=== PATIENT | male | born 1995 | race Hispanic/Latino ===

== ENCOUNTER 2022-02-28 16:26 | Emergency (ER) | payer SELFPAY ==
[2022-02-28] MEDS ORDERED: IBUPROFEN 200 MG TAB PO ONE (16:44)
[2022-02-28] MEDS ORDERED: IBUPROFEN 400 MG TAB ONE (16:45)
[2022-02-28] MEDS ORDERED: ONDANSETRON 4 MG (ODT) TAB ONE (16:45)
--- NOTE | 2022-02-28 17:09 | RAD REPORT ---
EXAM DESCRIPTION: Zeke Single View02/28/2022 5:01 pm CLINICAL HISTORY: Chest pain COMPARISON: none FINDINGS: The lungs appear clear of acute infiltrate. The heart is normal size IMPRESSION: No acute abnormalities displayed
--- NOTE | 2022-02-28 17:34 | EDPHYS ---
Physician Documentation [facility] Name: Shaun Jenkins Age: 26 yrs Sex: Male : 1995 Arrival Date: 02/28/2022 Time: 16:28 Bed 9 Private MD: ED Physician Jhonny Wylie HPI: 02/28 17:34 This 26 yrs old Male presents to ER via Ambulatory with complaints of ms3 Breathing Difficulty, Fever. 17:34 The patient has shortness of breath at rest. Onset: The symptoms/episode began/occurred ms3 yesterday. Duration: The symptoms are continuous. The patient's shortness of breath has no apparent modifying factors. Associated signs and symptoms: Pertinent positives: fever, nausea, vomiting. Severity of symptoms: At their worst the symptoms were severe in the emergency department the symptoms are unchanged. Patient states that he tested positive for COVID x2 at home.. Historical: - Allergies: 16:34 No Known Allergies; ll1 - PMHx: 16:34 None; ll1 - PSHx: 16:34 None; ll1 - Immunization history:: Client reports receiving the 2nd dose of the Covid vaccine, Flu vaccine status is unknown. - Social history:: Smoking status: Patient reports the use of cigarette tobacco products, denies chronic smoking, but will smoke occasionally, Reported history of juuling and/or vaping. ROS: 17:34 Cardiovascular: Negative for chest pain, and palpitations. ms3 17:34 Skin: Negative for injury, rash, and discoloration. 17:34 Constitutional: Positive for chills, fever. 17:34 ENT: Positive for sore throat. 17:34 Respiratory: Positive for shortness of breath. 17:34 Abdomen/GI: Positive for nausea, vomiting. 17:34 Skin: 17:34 All other systems are negative. Exam: 17:34 Constitutional: This is a well developed, well nourished patient who is awake, alert, ms3 and in no acute distress. Head/Face: Normocephalic, atraumatic. Eyes: Pupils equal round and reactive to light, extra-ocular motions intact. Lids and lashes normal. Conjunctiva and sclera are non-icteric and not injected. Periorbital areas with no swelling, redness, or edema. Chest/axilla: Normal chest wall appearance and motion. Nontender with no deformity. Cardiovascular: Regular rate and rhythm with a normal S1 and S2. No gallops, murmurs, or rubs. Normal PMI, no JVD. No pulse deficits. Respiratory: Lungs have equal breath sounds bilaterally, clear to auscultation and percussion. No rales, rhonchi or wheezes noted. No increased work of breathing, no retractions or nasal flaring. Abdomen/GI: Soft, non-tender, with normal bowel sounds. No distension or tympany. No guarding or rebound. No evidence of tenderness throughout. Skin: Warm, dry with normal turgor. Normal color with no rashes, no lesions, and no evidence of cellulitis. Psych: Awake, alert, with orientation to person, place and time. Behavior, mood, and affect are within normal limits. Vital Signs: 16:32 BP 127 / 66; Pulse 117; Resp 20; Temp 101.0; Pulse Ox 98% ; Weight 95.25 kg; Height 5 ll1 ft. 10 in. (177.80 cm); Pain 8/10; 17:31 BP 109 / 71; Pulse 100; Resp 20; Pulse Ox 98.5% on R/A; ll1 16:32 Body Mass Index 30.13 (95.25 kg, 177.80 cm) ll1 MDM: 16:41 Patient medically screened. ms3 17:34 Differential diagnosis: COVID vs Flu vs PNA. ms3 17:34 Data reviewed: vital signs, nurses notes, radiologic studies, and as a result, I will ms3 discharge patient. Data interpreted: Pulse oximetry: on room air is 98 %. Interpretation: normal. Counseling: I had a detailed discussion with the patient and/or guardian regarding: the historical points, exam findings, and any diagnostic results supporting the discharge/admit diagnosis, radiology results, the need for outpatient follow up, to return to the emergency department if symptoms worsen or persist or if there are any questions or concerns that arise at home. ED course: Discussed CXR , PE findings with patient. Patient to follow up with Dr Graham in 2-3 days. Patient understands/ agrees with plan. All questions answered. Return precautions given to include worsening symptoms, or any other concerns. Patient is improved, in NAD, non-toxic appearing, ambulatory in ED, speaking full sentences.. 02/28 16:42 Order name: CXR XRAY; Complete Time: 17:32 ms3 Administered Medications: 16:42 Drug: Zofran (Ondansetron) 4 mg Route: PO; ll1 16:43 Drug: Motrin (ibuprofen) 600 mg Route: PO; ll1 Disposition Summary: 02/28/22 17:34 Discharge Ordered Location: Home ms3 Condition: Stable ms3 Diagnosis - COVID ms3 - Myalgia ms3 - Cough ms3 Followup: ms3 - With: Andrea Graham DO - When: 2 - 3 days - Reason: Re-evaluation by your physician Discharge Instructions: - Discharge Summary Sheet ms3 - COVID-19 ms3 - COVID-19 Frequently Asked Questions ms3 - 10 Things You Can Do to Manage Your COVID-19 Symptoms at Home - [facility] ms3 Forms: - Medication Reconciliation Form ms3 - Thank You Letter ms3 - Antibiotic Education ms3 - Prescription Opioid Use ms3 Prescriptions: - Zofran 4 mg Oral Tablet - take 1 tablet by ORAL route every 8 hours As needed as needed for nausea/ ms3 vomiting; 20 tablet; Refills: 0, Product Selection Permitted Signatures: Dispatcher [employer] EDMS Wilbert Buck RN RN ll1 Jhonny Wylie DO DO ms3 Corrections: (The following items were deleted from the chart) 16:46 16:38 Influenza Screen (A \T\ B)+BA.LAB.BRZ ordered. EDMS EDMS 16:46 16:38 Group A Streptococcus Rapid Sc+BA.LAB.BRZ ordered. EDMS EDMS 16:46 16:39 Influenza Screen (A ordered. EDMS EDMS
--- NOTE | 2022-02-28 17:34 | ER ---
Nurse's Notes [facility] Name: Shaun Jenkins Age: 26 yrs Sex: Male : 1995 Arrival Date: 02/28/2022 Time: 16:28 Bed 9 Private MD: Diagnosis: COVID;Myalgia;Cough Presentation: 02/28 16:32 Chief complaint: Patient states: SOB, slight cough, fever, VEE for 2 days. + body aches. ll1 At home covid tests positive. Coronavirus screen: Vaccine status: Patient reports being unvaccinated. Client denies travel out of the [place] in the last 14 days. chills, congestion, cough unrelated to allergies, fatigue, fever, headache, muscle pain, nausea, vomiting. Client presents with at least one sign or symptom that may indicate coronavirus-19. Standard/surgical mask placed on the client. Ebola Screen: Patient denies travel to an Ebola-affected area in the 21 days before illness onset. Initial Sepsis Screen: Does the patient meet any 2 criteria? HR > 90 bpm. No. Patient's initial sepsis screen is negative. Does the patient have a suspected source of infection? Yes: Productive cough/pneumonia. Risk Assessment: Do you want to hurt yourself or someone else? Patient reports no desire to harm self or others. Onset of symptoms was February 27, 2022. 16:32 Method Of Arrival: Ambulatory ll1 16:32 Acuity: DALE 4 ll1 Triage Assessment: 16:35 General: Appears ill, Behavior is cooperative, appropriate for age. Pain: Complains of ll1 pain in head Quality of pain is described as aching. Neuro: Reports headache weakness. Respiratory: Reports shortness of breath cough that is. 17:35 Respiratory: Onset: The symptoms/episode began/occurred gradually, the patient has mild ld1 shortness of breath. Historical: - Allergies: 16:34 No Known Allergies; ll1 - PMHx: 16:34 None; ll1 - PSHx: 16:34 None; ll1 - Immunization history:: Client reports receiving the 2nd dose of the Covid vaccine, Flu vaccine status is unknown. - Social history:: Smoking status: Patient reports the use of cigarette tobacco products, denies chronic smoking, but will smoke occasionally, Reported history of juuling and/or vaping. Screenin:34 Abuse screen: Denies threats or abuse. Denies injuries from another. Nutritional ld1 screening: No deficits noted. Tuberculosis screening: No symptoms or risk factors identified. Fall Risk None identified. Assessment: 17:31 Reassessment: No changes from previously documented assessment. Patient and/or family ll1 updated on plan of care and expected duration. Pain level reassessed. Patient states symptoms have not improved. 17:34 Reassessment: Patient appears in no apparent distress at this time. No changes from ld1 previously documented assessment. General: Appears in no apparent distress. comfortable, Behavior is calm, cooperative, appropriate for age. Pain: Denies pain. Neuro: Level of Consciousness is awake, alert, obeys commands, Oriented to person, place, time, situation. Cardiovascular: Capillary refill < 3 seconds Patient's skin is warm and dry. Rhythm is sinus rhythm. Respiratory: Airway is patent Respiratory effort is even, unlabored. Respiratory: Breath sounds are clear bilaterally. GI: Abdomen is flat, non-distended. Vital Signs: 16:32 BP 127 / 66; Pulse 117; Resp 20; Temp 101.0; Pulse Ox 98% ; Weight 95.25 kg; Height 5 ll1 ft. 10 in. (177.80 cm); Pain 8/10; 17:31 BP 109 / 71; Pulse 100; Resp 20; Pulse Ox 98.5% on R/A; ll1 16:32 Body Mass Index 30.13 (95.25 kg, 177.80 cm) ll1 ED Course: 16:28 Patient arrived in ED. mr 16:34 Triage completed. ll1 16:34 Jhonny Wylie DO is Attending Physician. ms3 16:34 Arm band placed on. ll1 17:03 CXR XRAY In Process Unspecified. EDMS 17:26 Sandie Santoyo, JIMENA is Primary Nurse. ld1 17:33 Andrea Graham DO is Referral Physician. ms3 17:34 Patient has correct armband on for positive identification. Placed in gown. Bed in low ld1 position. Call light in reach. Side rails up X2. telemetry monitor on. Pulse ox on. NIBP on. Door closed. Noise minimized. Warm blanket given. 17:34 No provider procedures requiring assistance completed. Patient did not have IV access ld1 during this emergency room visit. Administered Medications: 16:42 Drug: Zofran (Ondansetron) 4 mg Route: PO; ll1 16:43 Drug: Motrin (ibuprofen) 600 mg Route: PO; ll1 Medication: 17:34 VIS not applicable for this client. ld1 Outcome: 17:34 Discharge ordered by . ms3 17:34 Discharged to home ambulatory, with family. ld1 17:34 Condition: stable 17:34 Discharge instructions given to patient, family, Instructed on discharge instructions, follow up and referral plans. Demonstrated understanding of instructions, follow-up care. 17:45 Patient left the ED. ld1 Signatures: Dispatcher [employer] EDMS CwoanChantelle navarrete mr Wilbert Buck RN RN ll1 Jhonny Wylie DO DO ms3 Sandie Santoyo, JIMENA RN ld1 Corrections: (The following items were deleted from the chart) 16:35 16:32 Chief complaint: Patient states: SOB, slight cough, fever, VEE for 2 days. + body ll1 aches ll1 16:48 16:32 Acuity: DALE 3 ll1 ll1
[2022-02-28 18:31] VITALS: TEMP 101; O2SAT 98
[2022-02-28 18:42] VITALS: BP 109/71
== END 2022-02-28 17:45 | disposition home or self-care (01) ==
LOC: ER 16:26
DX: U07.1 COVID-19 (principal); M79.10 Myalgia, unspecified site; Z72.0 Tobacco use
CPT/HCPCS: 71045; 99284

== ENCOUNTER 2024-01-09 03:49 | Emergency (ER) | payer SELFPAY ==
[2024-01-09] MEDS ORDERED: CEFTRIAXONE 1000 MG/VIAL ONE (04:25)
[2024-01-09] MEDS ORDERED: GUAIFENESIN/DM 5 ML UCUP ONE (04:26)
[2024-01-09] MEDS ORDERED: ACETAMINOPHEN 500 MG TAB ONE (04:26)
[2024-01-09] MEDS ORDERED: KETOROLAC 30 MG/ML INJ ONE (04:26)
[2024-01-09] MEDS ORDERED: LIDOCAINE 1% MPF 2 ML AMPULE ONE (04:26)
--- NOTE | 2024-01-09 04:36 | ER ---
Nurse's Notes [facility] Name: Shaun Jenkins Age: 28 yrs Sex: Male : 1995 Arrival Date: 01/09/2024 Time: 03:49 Bed 13 Private MD: Diagnosis: Acute suppurative otitis media without spontaneous rupture of ear drum, recurrent, left ear;Acute bronchitis, unspecified Presentation: 01/08 04:08 Chief complaint: Patient states: cough and congestion,onset 4 days ago. with left ear pf1 pain of 6,onset yesterday. 04:08 Coronavirus screen: Vaccine status: Patient reports receiving the 1st dose of the Covid pf1 vaccine. Client denies travel out of the [place] in the last 14 days. Client presents with at least one sign or symptom that may indicate coronavirus-19. Ebola Screen: Patient negative for fever greater than or equal to 101.5 degrees Fahrenheit, and additional compatible Ebola Virus Disease symptoms. Initial Sepsis Screen: Does the patient meet any 2 criteria? No. Patient's initial sepsis screen is negative. Does the patient have a suspected source of infection? No. Patient's initial sepsis screen is negative. Risk Assessment: Do you want to hurt yourself or someone else? Patient reports no desire to harm self or others. Onset of symptoms was January 05, 2024. Care prior to arrival: Medication(s) given: Tylenol, 500mg at 2300 tonight. 04:08 Method Of Arrival: Ambulatory pf1 04:08 Acuity: DALE 4 pf1 Triage Assessment: 04:17 General: Appears in no apparent distress. comfortable, well groomed, well developed, pf1 Behavior is calm, cooperative, appropriate for age, quiet. Pain: Complains of pain in left ear Pain currently is 6 out of 10 on a pain scale. Pain began 1 day ago. EENT: Reports nasal congestion pain in left ear. Neuro: No deficits noted. Level of Consciousness is awake, alert, obeys commands, Oriented to person, place, time, situation. Cardiovascular: No deficits noted. Capillary refill < 3 seconds Patient's skin is warm and dry. Respiratory: Reports cough that is Airway is patent Respiratory effort is even, unlabored, Respiratory pattern is regular, symmetrical. GI: No deficits noted. No signs and/or symptoms were reported involving the gastrointestinal system. : No deficits noted. No signs and/or symptoms were reported regarding the genitourinary system. Derm: No deficits noted. No signs and/or symptoms reported regarding the dermatologic system. Musculoskeletal: No deficits noted. No signs and/or symptoms reported regarding the musculoskeletal system. Historical: - Allergies: 04:17 No Known Allergies; pf1 - PMHx: 04:17 None; pf1 - PSHx: 04:17 None; pf1 - Immunization history:: Adult Immunizations up to date, Client reports receiving the Garland \T\ Garland single-dose vaccine. Last tetanus immunization: > 10 years ago Flu vaccine is not up to date. - Infectious Disease History:: Denies. - Social history:: Smoking status: Reported history of juuling and/or vaping. Patient/guardian denies using alcohol, street drugs. - Family history:: not pertinent. Screenin:18 [facility] ED Fall Risk Assessment (Adult) History of falling in the last 3 months, pf1 including since admission No falls in past 3 months (0 pts) Confusion or Disorientation No (0 pts) Intoxicated or Sedated No (0 pts) Impaired Gait No (0 pts) Mobility Assist Device Used No (0 pt) Altered Elimination No (0 pt) Score/Fall Risk Level 0 - 2 = Low Risk Oriented to surroundings, Maintained a safe environment, Educated pt \T\ family on fall prevention, incl call for assistance when getting out of bed, Assessed \T\ reinforced patient's understanding of fall precautions, Provided non-skid footwear, Hourly rounding (assess needs \T\ fall precautionary measures) done, Used ambulatory aids as needed (educated on \T\ assisted with), Used gait belt as appropriate. Abuse screen: Denies threats or abuse. Nutritional screening: No deficits noted. Tuberculosis screening: No symptoms or risk factors identified. Assessment: 04:19 Reassessment: see triage assessment. General:. pf1 04:30 General: Appears in no apparent distress. comfortable, Behavior is calm, cooperative. jw7 04:30 Pain: Complains of pain in left ear Pain does not radiate. Pain currently is 6 out of jw7 10 on a pain scale. Quality of pain is described as stinging, Pain began 1 day ago. Is continuous. Neuro: Level of Consciousness is awake, alert, obeys commands, Oriented to person, place, time, situation. Cardiovascular: Heart tones S1 S2 present Capillary refill < 3 seconds Clubbing of nail beds is absent JVD is absent Patient's skin is warm and dry. Respiratory: Airway is patent Trachea midline Respiratory effort is even, unlabored, Respiratory pattern is regular, symmetrical, Breath sounds are clear bilaterally. GI: Abdomen is flat, non-distended, Bowel sounds present X 4 quads. Abd is soft and non tender X 4 quads. : No deficits noted. No signs and/or symptoms were reported regarding the genitourinary system. EENT: Reports nasal congestion nasal discharge pain in left ear. Derm: Skin is intact, is healthy with good turgor, Skin is dry, Skin is normal, Skin temperature is warm. Musculoskeletal: Circulation, motion, and sensation intact. Range of motion: intact in all extremities. 05:00 Reassessment: Patient appears in no apparent distress at this time. Patient and/or jw7 family updated on plan of care and expected duration. Pain level reassessed. Patient is alert, oriented x 3, equal unlabored respirations, skin warm/dry/pink. Patient states feeling better. Patient states symptoms have improved. Vital Signs: 04:08 BP 130 / 81; Pulse 79; Resp 16; Temp 98; Pulse Ox 100% on R/A; Weight 83.91 kg; Height pf1 5 ft. 9 in. ; Pain 6/10; 04:45 BP 122 / 83; Pulse 67; Resp 16 S; Pulse Ox 100% on R/A; jw7 04:08 Body Mass Index 27.32 (83.91 kg, 175.26 cm) pf1 04:08 Pain Scale: Adult pf1 ED Course: 03:56 Patient arrived in ED. gm2 04:17 Triage completed. pf1 04:18 Arm band placed on right wrist. pf1 04:19 Jim Erwin MD is Attending Physician. sp4 04:19 No provider procedures requiring assistance completed. Patient did not have IV access pf1 during this emergency room visit. 04:34 Hilda Coburn RN is Primary Nurse. jw7 04:35 Patient has correct armband on for positive identification. Bed in low position. Call jw7 light in reach. Provided Education on: Use of Call Light. Administered Medications: 04:30 Drug: Acetaminophen PO 1000 mg PO once Route: PO; pf1 04:52 Follow up: Response: No adverse reaction; Marked relief of symptoms; Pain is decreased pf1 04:30 Drug: Dextromethorphan-Guaifenesin PO Liquid 10 mg-100 mg/5 mL 10 ml PO once Route: PO; pf1 04:52 Follow up: Response: No adverse reaction; Marked relief of symptoms pf1 05:00 Follow up: Response: No adverse reaction; Marked relief of symptoms jw7 04:32 Drug: Ketorolac IM 60 mg IM once Route: IM; Site: left ventrogluteal; pf1 04:52 Follow up: Response: No adverse reaction; Marked relief of symptoms; Pain is decreased pf1 04:35 Drug: Rocephin (cefTRIAXone) IM 1 grams IM once Route: IM; Site: right ventrogluteal; pf1 04:52 Follow up: Response: No adverse reaction pf1 Medication: 05:00 VIS not applicable for this client. jw7 Outcome: 04:36 Discharge ordered by . celsa 05:00 Discharged to home ambulatory, [facility] 05:00 Condition: stable 05:00 Discharge instructions given to patient, Instructed on discharge instructions, follow up and referral plans. medication usage, Demonstrated understanding of instructions, follow-up care, medications, Prescriptions given X 3, 05:00 Patient left the ED. jw7 Signatures: Hilda Coburn RN RN jw7 Savanna Flores RN RN pf1 Jim Erwin MD MD sp4 Jena Hayes gm2 Corrections: (The following items were deleted from the chart) 05:50 05:49 Patient left the ED. jw7 jw7
--- NOTE | 2024-01-09 04:36 | EDPHYS ---
Physician Documentation [facility] Name: Shaun Jenkins Age: 28 yrs Sex: Male : 1995 Arrival Date: 01/09/2024 Time: 03:49 Bed 13 Private MD: ED Physician Jim Erwin HPI: 01/08 04:20 This 28 yrs old Male presents to ER via Ambulatory with complaints of Ear sp4 Pain, Cough, Congestion. 04:20 28 year old ,male presents with acute onset left ear pain starting this morning. . sp4 Historical: - Allergies: 04:17 No Known Allergies; pf1 - PMHx: 04:17 None; pf1 - PSHx: 04:17 None; pf1 - Immunization history:: Adult Immunizations up to date, Client reports receiving the [place]land \T\ Garland single-dose vaccine. Last tetanus immunization: > 10 years ago Flu vaccine is not up to date. - Infectious Disease History:: Denies. - Social history:: Smoking status: Reported history of juuling and/or vaping. Patient/guardian denies using alcohol, street drugs. - Family history:: not pertinent. ROS: 04:20 Constitutional: Negative for fever, chills, and weight loss, Positive Right ear pain sp4 04:20 All other systems are negative, Exam: 04:20 Constitutional: This is a well developed, well nourished patient who is awake, alert, sp4 and in no acute distress. Head/Face: Normocephalic, atraumatic. Eyes: Pupils equal round and reactive to light, extra-ocular motions intact. Lids and lashes normal. Conjunctiva and sclera are not injected. Cornea within normal limits. Periorbital areas with no swelling, redness, or edema. ENT: Nares patent. No nasal discharge, no septal abnormalities noted. Tympanic membranes are normal and external auditory canals are clear. Oropharynx with no redness, swelling, or masses, exudates, or evidence of obstruction, uvula midline. Mucous membranes moist. Positive left TM erythema, purulence, bulging Neck: Trachea midline, no thyromegaly or masses palpated, and no cervical lymphadenopathy. Supple, full range of motion without nuchal rigidity, or vertebral point tenderness. Chest/axilla: Normal chest wall appearance and motion. Nontender with no deformity. No lesions are appreciated. Cardiovascular: Regular rate and rhythm with a normal S1 and S2. No gallops, murmurs, or rubs. Normal PMI, no JVD. No pulse deficits. Respiratory: Lungs have equal breath sounds bilaterally, clear to auscultation and percussion. No rales, rhonchi or wheezes noted. No increased work of breathing, no retractions or nasal flaring. Abdomen/GI: Soft, with normal bowel sounds. No distension or tympany. No guarding or rebound. No evidence of tenderness throughout. Back: No spinal tenderness. No costovertebral tenderness. Skin: Warm, dry with normal turgor. Normal color with no rashes, no lesions, and no evidence of cellulitis. MS/ Extremity: Pulses equal, no cyanosis. Neurovascular intact. Full, normal range of motion. Neuro: Awake and alert, GCS 15, oriented to person, place, time, and situation. Cranial nerves II-XII grossly intact. Motor strength 5/5 in all extremities. Sensory grossly intact. Psych: Awake, alert, with orientation to person, place and time. Behavior, mood, and affect are within normal limits Vital Signs: 04:08 BP 130 / 81; Pulse 79; Resp 16; Temp 98; Pulse Ox 100% on R/A; Weight 83.91 kg; Height pf1 5 ft. 9 in. ; Pain 6/10; 04:45 BP 122 / 83; Pulse 67; Resp 16 S; Pulse Ox 100% on R/A; jw7 04:08 Body Mass Index 27.32 (83.91 kg, 175.26 cm) pf1 04:08 Pain Scale: Adult pf1 MDM: 04:36 Patient medically screened. sp4 04:38 Differential diagnosis: otitis media, otitis externa, foreign body, acute otalgia, sp4 cerumen impaction. Data reviewed: vital signs, nurses notes. ED course: stable for discharge home with PO Zithromax . Administered Medications: 04:30 Drug: Acetaminophen PO 1000 mg PO once Route: PO; pf1 04:52 Follow up: Response: No adverse reaction; Marked relief of symptoms; Pain is decreased pf1 04:30 Drug: Dextromethorphan-Guaifenesin PO Liquid 10 mg-100 mg/5 mL 10 ml PO once Route: PO; pf1 04:52 Follow up: Response: No adverse reaction; Marked relief of symptoms pf1 05:00 Follow up: Response: No adverse reaction; Marked relief of symptoms 7 04:32 Drug: Ketorolac IM 60 mg IM once Route: IM; Site: left ventrogluteal; pf1 04:52 Follow up: Response: No adverse reaction; Marked relief of symptoms; Pain is decreased pf1 04:35 Drug: Rocephin (cefTRIAXone) IM 1 grams IM once Route: IM; Site: right ventrogluteal; pf1 04:52 Follow up: Response: No adverse reaction pf1 Disposition Summary: 01/09/24 04:36 Discharge Ordered Notes: Location: Home sp4 Problem: new sp4 Symptoms: have improved sp4 Condition: Stable sp4 Diagnosis - Acute suppurative otitis media without spontaneous rupture of ear drum, recurrent, sp4 left ear - Acute bronchitis, unspecified sp4 Followup: sp4 - With: Private Physician - When: 7 - 10 days - Reason: Recheck today's complaints Discharge Instructions: - Discharge Summary Sheet sp4 - Otitis Media, Adult, [id number] sp4 Forms: - Work release form jw7 - Patient Portal Instructions sp4 Prescriptions: - dextromethorphan-guaifenesin 20-400 mg Oral tablet - take 1 tablet ORAL route every 6 hours PRN cough and congestion; 40 tablet; sp4 Refills: 0, Product Selection Permitted - Ibuprofen 800 mg Oral Tablet - take 1 tablet ORAL route every 8 hours As needed take with food; 30 tablet; sp4 Refills: 0, Product Selection Permitted - Zithromax Z-Leo 250 mg Oral Tablet - take 1 tablet ORAL route as directed for 5 days Day 1 - take two (2) tablets sp4 one time. Day 2, 3, 4 , 5 take one (1) tablet once daily.; 6 tablet; Refills: 0, Product Selection Permitted Signatures: Savanna Flores RN RN pf1 Jim Erwin MD MD sp4 Hilda Coburn RN jw7
[2024-01-09 13:08] VITALS: BP 122/83; TEMP 98; O2SAT 100
== END 2024-01-09 05:49 | disposition home or self-care (01) ==
LOC: ER 03:49
DX: H66.005 Acute suppurative otitis media without spontaneous rupture of ear drum, recurrent, left ear (principal)
CPT/HCPCS: 96372; 99284; J0696